=== PATIENT | male | born 1970 | race Two or more races ===

== ENCOUNTER 2022-04-24 09:22 | Emergency (ER) | payer OTHER ==
[~2022-04-24] VITALS: Ht 180.3 cm; Wt 122.5 kg
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
--- NOTE | 2022-04-24 09:40 | NUR ---
DR. CLAROS SEEN PT AT BEDSIDE
[2022-04-24] MEDS ORDERED: TDAP [DIPH/PERTUSSIS/TET] 0.5 ML VIAL IM ONE ×2 (09:46→10:00)
[2022-04-24] MEDS ORDERED: CEPHALEXIN MONOHYDRATE 500 MG CAPSULE PO ONE ×2 (09:46→10:00)
[2022-04-24] MEDS ORDERED: LIDOCAINE 1% INJ 50 ML MDV IJ ONE (09:51)
[2022-04-24] MEDS ORDERED: CEPH500C2 PO (10:05)
--- NOTE | 2022-04-24 10:14 | NUR ---
Patient discharged to home in stable condition. Written and verbal after care instructions given. Patient verbalizes understanding of instruction.
--- NOTE | 2022-04-24 10:16 | NUR ---
WOUND REPAIR DONE USING SKIN ADHESIVE. DRESSING APPLIED.Patient discharged to home in stable condition. Written and verbal after care instructions given. Patient verbalizes understanding of instruction.
[2022-04-24 10:17] VITALS: BP 188/128
== END 2022-04-24 10:18 | disposition home or self-care (01) ==
LOC: ER 09:39
DX: S61.412A Laceration without foreign body of left hand, initial encounter (principal); W26.0XXA Contact with knife, initial encounter; Y93.89 Activity, other specified; Y92.89 Other specified places as the place of occurrence of the external cause; Y99.8 Other external cause status
CPT/HCPCS: 99283; 12001; 90471; 90715; J3490; A6403